=== PATIENT | male | born 1970 | race Caucasian/White ===

== ENCOUNTER → 2019-11-30 | Outpatient (CLI) | payer OTHER ==
--- NOTE | 2019-11-30 08:31 | MR ---
EXAMINATION TYPE: MR knee RT wo con DATE OF EXAM: 11/30/2019 COMPARISON: None HISTORY: Right knee pain TECHNIQUE: Multiplanar, multisequence imaging of the right knee is performed without IV contrast. FINDINGS: MEDIAL MENISCUS: Linear signal posterior horn medial meniscus suggestive of a linear tear. LATERAL MENISCUS: Anterior and posterior horns are intact without tear. CRUCIATE LIGAMENTS: The anterior and posterior cruciate ligaments are intact and unremarkable. COLLATERAL LIGAMENTS: The medial collateral ligament and lateral collateral ligament complex are inta ct and unremarkable. EXTENSOR MECHANISM: Visualized quadriceps and patellar tendons are intact. EFFUSION: No significant suprapatellar joint effusion. POPLITEAL CYST: No popliteal/esposito cyst. TRICOMPARTMENT SPACES: There is grade II chondromalacia along the lateral patellar facet. The joint s paces appear to be preserved. No erosive changes. BONE MARROW SIGNAL: No focal abnormal marrow signal is appreciated. IMPRESSION: 1. Findings suggestive linear tear posterior horn medial meniscus 2. Grade II chondromalacia lateral patellar facet
== END | disposition home or self-care (01) ==
LOC: RADMRIMAIN 05:53
PROVIDERS: ATTEND Nurse Practitioner Family
DX: M22.41 Chondromalacia patellae, right knee (principal)

== ENCOUNTER → 2021-11-28 | Outpatient (CLI) | payer OTHER | END | disposition home or self-care (01) | LOC: LABWHC1 14:26 | PROVIDERS: ATTEND Surgery Plastic and Reconstructive Surgery | DX: R07.9 Chest pain, unspecified (principal) | CPT/HCPCS: 93005 ==

== ENCOUNTER → 2021-12-03 | Outpatient (CLI) | payer OTHER ==
[2021-12-03 21:00] LABS: HCT 46.6 % (39.6-50.0); MCH 29.1 pg (27.0-32.0); MCHC 32.2 g/dL (32.0-37.0); MCV 90.5 fL (80.0-97.0); Mean Platelet Volume 10.2 fL (9.5-12.2); NRBC Per 100 WBC 0 /100 WBCS (0.0-0.0); Platelet Count 294 X 10*3/uL (140-440); RBC 5.15 X 10*6/uL (4.40-5.60); RDW 13.1 % (11.5-14.5); WBC 6.61 X 10*3/uL (4.50-10.00)
== END | disposition home or self-care (01) ==
LOC: LABPAT 12:46
PROVIDERS: ATTEND Surgery Plastic and Reconstructive Surgery
DX: Z01.812 Encounter for preprocedural laboratory examination (principal); K82.9 Disease of gallbladder, unspecified
CPT/HCPCS: 36415; 85027

== ENCOUNTER 2021-12-06 10:01 | Day surgery (SDC) | payer OTHER ==
[2021-12-03 11:28] VITALS: BMI 43.4
--- NOTE | 2021-12-06 07:42 | P.GSHP ---
History of Present Illness H&P Date: 12/06/21 CHIEF COMPLAINT: Cholecystitis HISTORY OF PRESENT ILLNESS: The patient is a 51-year-old male who presents with history of epigastric including right upper quadrant abdominal pain. He underwent diagnostic studies for the gallbladder. Separately his clinical picture was consistent with cholecystitis. Now he presents for surgical intervention. PAST MEDICAL HISTORY: Please see list PAST SURGICAL HISTORY: Please see list MEDICATIONS: Please see list ALLERGIES: Denies. SOCIAL HISTORY: No illicit drug use or recent tobacco use FAMILY HISTORY: Pertinent for gallbladder disease REVIEW OF ORGAN SYSTEMS: CONSTITUTIONAL: No reports of fevers or chills. HEENT: Denies any troubles with the vision or hearing. ENDOCRINE: No reports of hypothyroidism. No diabetes. RESPIRATORY: No recent pneumonias. CARDIOVASCULAR: Denies chest pain or palpitations GI: No blood in stools or constipation. MUSCULOSKELETAL: Has occasional joint pain including back pain. NEURO: No seizure disorders or headaches. No recent stroke. PSYCH: No depression or suicidal ideation. HEMATOLOGIC: No personal or family history of DVTs or pulmonary emboli. PHYSICAL EXAM: VITAL SIGNS: Afebrile vital signs stable GENERAL: Well-developed pleasant male in no acute distress. HEENT: No scleral icterus. Extraocular movements grossly intact. Moist buccal mucosa. NECK: Supple without lymphadenopathy. CHEST: Unlabored respirations. Equal bilateral excursions. CARDIOVASCULAR: Regular rate regular rhythm rhythm. Distal 2+ pulses. ABDOMEN: Soft, nondistended. Tender along the epigastrium and right upper quadrant. MUSCULOSKELETAL: No clubbing, cyanosis, or edema. NEURO : No focal or lateralizing signs. Cranial nerves II-12 within normal limits. PSYCH: Alert and oriented to person, place and time. SKIN: Well perfused. Good skin turgor. ASSESSMENT: 1. Epigastric and right upper quadrant abdominal pain 2. Chronic cholecystitis PLAN: 1. Will need a robotic cholecystectomy possible open. Benefits and risks were described. 2. Heparin for DVT prophylaxis 5000 units. 3. Antibiotic prophylaxis. Past Medical History Past Medical History: No Reported History Additional Past Medical History / Comment(s): GALLBLADDER DISORDER History of Any Multi-Drug Resistant Organisms: None Reported Additional Past Surgical History / Comment(s): lymph node removal,. sinus surgery. Past Anesthesia/Blood Transfusion Reactions: No Reported Reaction Smoking Status: Former smoker - Past Family History Mother Additional Family Medical History / Comment(s): ADOPTED-FAMILY HX NOT KNOWN Medications and Allergies Home Medications Medication Instructions Recorded Confirmed Type Albuterol Sulfate [Proair Hfa] 1 - 2 puff INHALATION Q6HR PRN 12/03/21 12/03/21 History Azelastine HCl [Astepro] 137 mcg NASAL BID 12/03/21 12/03/21 History Fluticasone Nasal [place] [Flonase 2 spray EA NOSTRIL DAILY 12/03/21 12/03/21 History Nasal [place]] Mometasone/Formoterol [Dulera 100 1 puff PO BID 12/03/21 12/03/21 History Mcg-5 Mcg Inhaler] Allergies Allergy/AdvReac Type Severity Reaction Status Date / Time acetaminophen [From Tylenol] Allergy Anaphylaxis Verified 12/03/21 11:11 aspirin Allergy Anaphylaxis Verified 12/03/21 11:11 ibuprofen [From Motrin] Allergy Anaphylaxis Verified 12/03/21 11:11 iodine Allergy Anaphylaxis Verified 12/03/21 11:11 latex Allergy Rash/Hives Verified 12/03/21 11:11 NSAIDS (Non-Steroidal Allergy Anaphylaxis Verified 12/03/21 11:11 Anti-Inflamma shellfish derived [Shellfish] Allergy Anaphylaxis Verified 12/03/21 11:11
[~2021-12-06 10:01] MED LIST: DEXAMETHASONE SOD PHOSPHATE 4 MG/ML 1 ML VIAL IV ONE; GABAPENTIN 300 MG CAP PO PRN; HEPARIN SODIUM,PORCINE/PF 5,000 UNIT/0.5 ML SYRINGE SQ PRN; HYDROmorphone 0.5 MG/0.5 ML SYRINGE IVP PRN; LACTATED RINGERS 1,000 ML IV SCH; LIDOCAINE 1% (10MG/ML) FOR IV START INTRADERMA PRN; MIDAZOLAM 2 MG/2 ML VIAL IV PRN; ONDANSETRON 4 MG/2 ML VIAL IVP ONE; TAMSULOSIN 0.4 MG CAP.ER.24H PO PRN; ceFAZolin 3 GM in SODIUM CHLORIDE 0.9% 100 ML IVPB PRN
[2021-12-06] MEDS ORDERED: INDOCYANINE GREEN 25 MG VIAL IV ONE ×2 (11:08→11:30)
[2021-12-06] MEDS ORDERED: PROPOFOL 10 MG/ML 20 ML VIAL IV ONE (11:08)
[2021-12-06] MEDS ORDERED: ROCURONIUM 10 MG/ML (5 ML VIAL) IV ONE (11:08)
[2021-12-06] MEDS ORDERED: GLYCOPYRROLATE 0.2 MG/ML 2 ML VIAL ONE (11:08)
[2021-12-06] MEDS ORDERED: diphenhydrAMINE 50 MG/ML 1 ML VIAL ONE (11:08)
[2021-12-06] MEDS ORDERED: SUCCINYLCHOLINE CHLORIDE VIAL 200 MG/10 ML VIAL IV ONE (11:08)
[2021-12-06] MEDS ORDERED: MIDAZOLAM 2 MG/2 ML VIAL ONE (11:08)
[2021-12-06] MEDS ORDERED: NEOSTIGMINE 1 MG/ML 10 ML VIAL ONE (11:08)
[2021-12-06] MEDS ORDERED: ONDANSETRON 4 MG/2 ML VIAL ONE (11:08)
[2021-12-06] MEDS ORDERED: DEXAMETHASONE SOD PHOSPHATE 10 MG/ML 1 ML VIAL ONE (11:08)
[2021-12-06] MEDS ORDERED: fentaNYL (PF) 50 MCG/ML 2 ML AMP ONE (11:08)
[2021-12-06] MEDS ORDERED: LIDOCAINE 1% INJ 10MG/ML (20 ML MDV) ONE (11:08)
[2021-12-06] MEDS ORDERED: BUPIVACAIN-EPI 0.25%-1:200,000 30 ML VIAL SQ ONE ×2 (11:37→11:41)
[2021-12-06] MEDS ORDERED: LACTATED RINGERS 1,000 ML IV ONE (12:20)
[2021-12-06 12:40] VITALS: TEMP 97.7
--- NOTE | 2021-12-06 13:31 | P.OP ---
Date of Procedure: 12/06/21 Description of Procedure: SURGEON: JAZ CURTIS MD PREOPERATIVE DIAGNOSES: 1. Symptomatic gallstones 2. Right upper quadrant abdominal pain 3. Morbid obesity due to excess calories, BMI 44.7 4. Chronic obstructive pulmonary disease, asthma 5. Multiple drug ALLERGIES POSTOPERATIVE DIAGNOSES: 1. Symptomatic gallstones 2. Right upper quadrant abdominal pain 3. Morbid obesity due to excess calories, BMI 44.7 4. Chronic obstructive pulmonary disease, asthma 5. Multiple drug ALLERGIES 6. Hepatomegaly with fatty liver disease OPERATION: Robotic-assisted da Sandra Xi laparoscopic cholecystectomy, multiport with FIREFLY ESTIMATED BLOOD LOSS: 5 mL. SPECIMENS REMOVED: Gallbladder. COMPLICATIONS: None. OPERATIVE FINDINGS: 1. Hepatomegaly with fatty liver disease adding complexity to this case INDICATIONS: The patient is a -year-old female who presents with symptomatic gallstones. Robotic assisted laparoscopic approach was described. Benefits and risks of the procedure including but not limited to bleeding, infection, injury to the biliary tree was described. Informed consent was obtained. DESCRIPTION OF PROCEDURE: Patient was brought to the operating room, placed in supine position. After general induction, the abdomen had been prepped and draped in standard sterile fashion. The robotic da Sandra XI system was primed. After a timeout protocol was performed, the patient had been prepped and draped in standard sterile fashion. The patient was injected with indocyanine green. A 5 mm 0 degrees laparoscopic trocar entry was performed along the left upper quadrant. The abdomen insufflated to 15 mmHg pressure which was tolerated well. Diagnostic laparoscopy demonstrated no injury to bowel viscera or mesentery. The liver surface was consistent with fatty liver disease. Next, two 8 mm robotic ports were placed along the right upper abdomen. The camera 8-mm port was maintained along the epigastrium. Another 8 mm port was placed along the left upper abdominal wall after exchanging the 5 mm port. Please note that the ports were placed at least 10 to 15 cm away from the target anatomy of the gallbladder. The robot was docked along the left lateral abdomen. The patient was repositioned in reverse Trendelenburg position. Using a grasper for arm 3, a grasper for arm 4, including hook cautery for arm 1, the robotic system was docked and primed as described. Instruments were interchanged by the assistant mechanic including hook cautery, Bovie cautery and clip appliers. I had sat at the console. Fatty liver disease with hepatomegaly was identified adding complexity to the case. Next attention was brought to the infundibulum and cystic structures. The infundibulum and cystic duct were dissected free from surrounding tissues. The cystic duct was isolated. FIREFLY was used to identify the cystic artery and cystic structures. A critical view of safety was obtained. Large PLASTIC clips were used throughout the entire case. Using a clip library cataloging technician, 2 clips were placed at the junction of the infundibulum and cystic duct. The cystic duct was divided between clips. Next, the cystic artery was similarly clipped and cauterized. Electro-Bovie cautery was used to remove the gallbladder from the hepatic fossa. Hemostasis was checked and found to be adequate. The robot was undocked. I re-scrubbed into the case. Using a 10 mm Endo Catch bag via the left upper quadrant incision, the specimen was removed from the abdominal cavity. All pneumoperitoneum instruments were evacuated from the abdominal cavity. The incisions were reapproximated using 4-0 Monocryl in an interrupted subcuticular fashion. Fascial defects were less than 8 mm in size. Please note along the trocar sites, local anesthetic was placed as a field block prior to insertion of all instruments. Liquid glue was applied to the skin. At the end of the procedure needle, sponge, and instrument count had been verified correct by the surgical appliance fitter. The patient was transferred to postanesthesia care unit in stable condition. Intraoperative films were shared with the patient's family. Plan - Discharge Summary Discharge Rx Participant: No New Discharge Prescriptions: New Simethicone [Gas-X] 125 mg PO AC-TID PRN #20 capsule PRN Reason: Pain Continue Albuterol Sulfate [Proair Hfa] 1 - 2 puff INHALATION Q6HR PRN PRN Reason: RESCUE INHALER Mometasone/Formoterol [Dulera 100 Mcg-5 Mcg Inhaler] 1 puff PO BID Azelastine HCl [Astepro] 137 mcg NASAL BID Fluticasone Nasal [place] [Flonase Nasal [place]] 2 spray EA NOSTRIL DAILY Discharge Medication List Albuterol Sulfate [Proair Hfa] 1 - 2 puff INHALATION Q6HR PRN 12/03/21 [History] Azelastine HCl [Astepro] 137 mcg NASAL BID 12/03/21 [History] Fluticasone Nasal [place] [Flonase Nasal [place]] 2 spray EA NOSTRIL DAILY 12/03/21 [History] Mometasone/Formoterol [Dulera 100 Mcg-5 Mcg Inhaler] 1 puff PO BID 12/03/21 [History] Simethicone [Gas-X] 125 mg PO AC-TID PRN #20 capsule 12/06/21 [Rx] Follow up Appointment(s)/Referral(s): Jaz Curtis MD [STAFF PHYSICIAN] - 12/10/21 (Telehealth) Patient Instructions/Handouts: *Sur[facility] - Managing Your Pain After Surgery Without Opioids, Low Fat Diet (DC), Laparoscopic Cholecystectomy (DC) Activity/Diet/Wound Care/Special Instructions: Recommend low-fat diet for the next 2 days. No lifting over 10 pounds in 2 weeks until December 20January shower. No bath tub soaks for two weeks until December 20 Diet as tolerated. Use simethicone and your pain medications scheduled for the next 24-48 hours for best pain relief. Use ice along incisions for today to prevent swelling. Discharge Disposition: HOME SELF-CARE
[2021-12-06 14:08] VITALS: BP 110/72; PULSE 82; RESP 20
[2021-12-06 14:13] LABS: ALT 23 U/L (4-49); AST 33 U/L (17-59); African American GFR (CKD) >90 (>60 ml/min/1.73 sqM); Albumin 4.3 g/dL (3.5-5.0); Alkaline Phosphatase 67 U/L (38-126); Anion Gap 6 mmol/L; Blood Urea Nitrogen 15 mg/dL (9-20); Calcium 9.1 mg/dL (8.4-10.2); Carbon Dioxide 29 mmol/L (22-30); Chloride 106 mmol/L (98-107); Glucose 134 mg/dL (74-99); Non-African American GFR(CKD) 86 (>60 ml/min/1.73 sqM); Potassium 5.1 mmol/L (3.5-5.1); Sodium 141 mmol/L (137-145); Total Bilirubin 0.5 mg/dL (0.2-1.3); Total Protein 7.7 g/dL (6.3-8.2)
== END 2021-12-06 14:20 | disposition home or self-care (01) ==
LOC: OR 10:01
PROVIDERS: ATTEND Surgery Plastic and Reconstructive Surgery
DX: K80.10 Calculus of gallbladder with chronic cholecystitis without obstruction (principal); G47.33 Obstructive sleep apnea (adult) (pediatric); Z91.040 Latex allergy status; E66.01 Morbid (severe) obesity due to excess calories; Z68.41 Body mass index [BMI] 40.0-44.9, adult; Z87.891 Personal history of nicotine dependence; J44.9 Chronic obstructive pulmonary disease, unspecified; Z98.890 Other specified postprocedural states; K76.0 Fatty (change of) liver, not elsewhere classified; Z79.51 Long term (current) use of inhaled steroids; Z79.899 Other long term (current) drug therapy; Z88.6 Allergy status to analgesic agent; Z91.013 Allergy to seafood; Z91.048 Other nonmedicinal substance allergy status
CPT/HCPCS: 88304; 80053; 47563; J2250; J0330; J1200; J1100 ×2; J2710; J0690; J2405; J2001; J3010; J2704; J1644